=== PATIENT | female | born 1960 | race Caucasian/White ===

== ENCOUNTER 2017-07-21 13:58 | Inpatient (IN) | payer MEDICARE, MEDICAID ==
[~2017-07-21] VITALS: Ht 162.6 cm; Wt 40.9 kg
[~2017-07-21 13:58] MED LIST: ALBU18HF2 INH; ASPI-612 PO; ATOR10TA70 PO; AZI25OT PO; BUSP30TA2 PO; CARV3.122 PO; DESL5TAB PO; FENT1PAT7 TOP; LEVO125T8 PO; MONT10TA24 PO; OMEG1CAP46 PO; ONDA8TAB6 PO; QUET-1 PO; RIVA20TA PO; SERT100T10 PO; ZIPR40CA2 PO; ZIPR80CA2 PO
[2017-07-21] MEDS ORDERED: normal saline 1000ml 1,000 ML IV ONE (14:20)
[2017-07-21] MEDS ORDERED: aspirin 81mg tab.chew PO ONE (14:20)
[2017-07-21 14:50] LABS: BASOPHILS # (AUTO) 0.1 X10'3 (0-0.2); BASOPHILS % (AUTO) 0.7 % (0-1); EOSINOPHILS # (AUTO) 0.2 X10'3 (0-0.9); EOSINOPHILS % (AUTO) 2.6 % (0-6); HEMATOCRIT 35.3 % (35.0-45.0); HEMOGLOBIN 11.7 g/dl (12.0-16.0); LYMPHOCYTES # (AUTO) 3.1 X10'3 (1.1-4.8); LYMPHOCYTES % (AUTO) 40.3 % (21-51); MEAN CORPUSCULAR HEMOGLOBIN 28.6 PG (27.0-31.0); MEAN CORPUSCULAR HGB CONC 33.1 % (33.0-36.5); MEAN CORPUSCULAR VOLUME 86.3 FL (78-98); MEAN PLATELET VOLUME 6.9 FL (7.4-10.4); MONOCYTES # (AUTO) 0.9 X10'3 (0-0.9); MONOCYTES % (AUTO) 11.6 % (2-12); NEUTROPHILS # (AUTO) 3.5 X10'3 (1.8-7.7); NEUTROPHILS % (AUTO) 44.8 % (42-75); PLATELET COUNT 503 X10'3 (140-440); RED BLOOD COUNT 4.09 X10'6 (4.20-5.60); RED CELL DISTRIBUTION WIDTH 15.1 % (11.5-14.5); WHITE BLOOD COUNT 7.8 X10'3 (4.5-11.0)
[2017-07-21 15:17] LABS: ALANINE AMINOTRANSFERASE 32 U/L (12-78); ALBUMIN 3.8 G/DL (3.4-5.0); ALKALINE PHOSPHATASE 85 IU/L (46-116); ANION GAP 6 (8-16); ASPARTATE AMINO TRANSFERASE 37 U/L (10-37); BILIRUBIN,TOTAL 0.4 MG/DL (0.1-1.0); BLOOD UREA NITROGEN 15 MG/DL (7-18); BUN/CREATININE RATIO 16.5 (6.6-38.0); CALCIUM 9.1 MG/DL (8.5-10.1); CHLORIDE 103 MMOL/L (99-107); CREATININE 0.91 MG/DL (0.40-0.90); GLUCOSE 84 MG/DL (70-104); POTASSIUM 4.4 MMOL/L (3.5-5.1); SODIUM 140 MMOL/L (135-145); TOTAL CARBON DIOXIDE 30.6 MMOL/L (24-32); TOTAL PROTEIN 7.6 G/DL (6.4-8.2); eGFR 64 ML/MIN
[2017-07-21 15:25] LABS: MAGNESIUM 2.1 MG/DL (1.5-2.4)
[2017-07-21] MEDS ORDERED: FENTANYL 25 MCG TOP SCH (16:20)
[2017-07-21] MEDS ORDERED: mag hydrox/Alum hydrox/simeth 30ml oral suspension PO PRN (16:25)
[2017-07-21] MEDS ORDERED: regadenoson 0.4mg/5ml syringe IV ONE (16:25)
[2017-07-21] MEDS ORDERED: magnesium 4gm in 100ml NS 100 ML IV PRN (16:25)
[2017-07-21] MEDS ORDERED: ondansetron/PF 4mg/2ml inj IV PRN (16:25)
[2017-07-21] MEDS ORDERED: acetaminophen 325mg tablet PO PRN (16:25)
[2017-07-21] MEDS ORDERED: nitroGLYCERIN 0.4mg SUBLingual tab SL PRN ×2 (16:25→16:30)
[2017-07-21] MEDS ORDERED: aminophylline 250mg/10ml inj. IV PRN (16:25)
[2017-07-21] MEDS ORDERED: magnesium hydroxide 30ml (MOM) UD suspension PO PRN (16:25)
[2017-07-21] MEDS ORDERED: metoprolol tartrate 1mg/ml inj IV PRN (16:25)
[2017-07-21] MEDS ORDERED: potassium Cl 20 mEq SR tablet PO PRN ×2 (16:25)
[2017-07-21] MEDS ORDERED: ipratropium/albuterol 3ml nebule NEB PRN (16:25)
[2017-07-21] MEDS ORDERED: magnesium 2GM in 50ml NS 50 ML IV PRN (16:25)
[2017-07-21] MEDS ORDERED: potassium Cl 40MEQ/NS 500ml 500 ML IV PRN ×2 (16:25)
[2017-07-21] MEDS ORDERED: albuterol 2.5 MG/3 ML nebule NEB PRN (17:35)
[2017-07-21 20:00] VITALS: BP_SYST 102; BP_SYST 96; BP_DIAS 61; BP_DIAS 67
[2017-07-21] MEDS: carVEDilol 3.125mg tablet PO SCH (20:00)
[2017-07-21] MEDS ORDERED: ziprasidone 20mg capsule PO SCH (21:00)
[2017-07-21] MEDS ORDERED: QUEtiapine 25mg tablet PO SCH ×2 (21:00→21:59)
[2017-07-21] MEDS ORDERED: ZIPRASIDONE HCL PO SCH (21:00)
[2017-07-21] MEDS: busPIRone 15mg tablet PO SCH (21:17)
[2017-07-21] MEDS: methylPREDNISolone sod succ 125mg/2ml vial IV SCH (21:38)
[2017-07-21 22:13] VITALS: BP 120/74
[2017-07-22] VITALS (13 sets, daily range): BP systolic 91–131; BP diastolic 52–83
[2017-07-22 03:05] LABS: ALANINE AMINOTRANSFERASE 19 U/L (12-78); ALBUMIN 3.6 G/DL (3.4-5.0); ALKALINE PHOSPHATASE 87 IU/L (46-116); ANION GAP 4 (8-16); ASPARTATE AMINO TRANSFERASE 20 U/L (10-37); BILIRUBIN,TOTAL 0.4 MG/DL (0.1-1.0); BLOOD UREA NITROGEN 16 MG/DL (7-18); BUN/CREATININE RATIO 15.1 (6.6-38.0); CALCIUM 8.7 MG/DL (8.5-10.1); CHLORIDE 105 MMOL/L (99-107); CREATININE 1.06 MG/DL (0.40-0.90); GLUCOSE 142 MG/DL (70-104); POTASSIUM 4.2 MMOL/L (3.5-5.1); SODIUM 141 MMOL/L (135-145); TOTAL CARBON DIOXIDE 31.6 MMOL/L (24-32); TOTAL PROTEIN 7.3 G/DL (6.4-8.2); eGFR 54 ML/MIN
[2017-07-22 03:08] LABS: MAGNESIUM 2.1 MG/DL (1.5-2.4)
[2017-07-22] MEDS: methylPREDNISolone sod succ 125mg/2ml vial IV SCH ×3 (03:26→13:49)
[2017-07-22 04:19] LABS: BASOPHILS % (AUTO) 0.2 % (0-1); EOSINOPHILS # (AUTO) 0.1 X10'3 (0-0.9); EOSINOPHILS % (AUTO) 1.5 % (0-6); HEMATOCRIT 35.6 % (35.0-45.0); HEMOGLOBIN 11.6 g/dl (12.0-16.0); LYMPHOCYTES # (AUTO) 1.3 X10'3 (1.1-4.8); LYMPHOCYTES % (AUTO) 17.7 % (21-51); MEAN CORPUSCULAR HEMOGLOBIN 28.3 PG (27.0-31.0); MEAN CORPUSCULAR HGB CONC 32.7 % (33.0-36.5); MEAN CORPUSCULAR VOLUME 86.4 FL (78-98); MEAN PLATELET VOLUME 7.4 FL (7.4-10.4); MONOCYTES # (AUTO) 0.1 X10'3 (0-0.9); MONOCYTES % (AUTO) 1.1 % (2-12); NEUTROPHILS % (AUTO) 79.5 % (42-75); PLATELET COUNT 458 X10'3 (140-440); RED BLOOD COUNT 4.11 X10'6 (4.20-5.60); WHITE BLOOD COUNT 7.5 X10'3 (4.5-11.0)
[2017-07-22] MEDS ORDERED: atorvastatin 10mg tablet PO SCH (08:00)
[2017-07-22] MEDS ORDERED: K and/or MAG REPLACEMENT MC SCH (08:00)
[2017-07-22] MEDS ORDERED: levoTHYROXINE 125mcg tablet PO SCH (08:00)
[2017-07-22] MEDS ORDERED: aspirin 81mg tablet.DR PO SCH (08:00)
[2017-07-22] MEDS ORDERED: montelukast 10mg tablet PO SCH (08:00)
[2017-07-22] MEDS ORDERED: rivaroxaban 20mg tablet PO SCH (08:00)
[2017-07-22] MEDS ORDERED: sertraline 50mg tablet PO SCH (08:00)
[2017-07-22] MEDS ORDERED: aminophylline inj. 10 ML IV ONE (09:03)
[2017-07-22] MEDS ORDERED: regadenoson 0.4mg/5ml syringe IV ONE (09:04)
[2017-07-22] MEDS: carVEDilol 3.125mg tablet PO SCH (10:55)
[2017-07-22] MEDS: busPIRone 15mg tablet PO SCH (10:56)
[2017-07-22] MEDS ORDERED: ALPRAZolam 0.25mg tablet PO PRN (11:30)
[2017-07-22] MEDS ORDERED: PRED20TA PO (12:13)
[2017-07-22] MEDS ORDERED: FLUT1BLS3 INH (12:13)
[2017-07-23] MEDS ORDERED: levoTHYROXINE 75mcg tablet PO SCH (08:00)
[2017-07-23] MEDS ORDERED: fentaNYL 25MCG/hour patch.TD72 TD SCH (08:00)
[2017-07-24] MEDS ORDERED: fentaNYL 25MCG/hour patch.TD72 TD SCH (08:00)
== END 2017-07-22 16:40 | disposition home or self-care (01) | DRG 191 ==
LOC: ER 13:59 → ED HOLD 16:21 → SUR 3N 18:40
PROVIDERS: ADMIT Family Medicine; ATTEND Family Medicine
PROC: 4A02XM4 Measurement of Cardiac Total Activity, External Approach (ICD-10-PCS; principal; 2017-07-22)
PROC: 3E073KZ Introduction of Other Diagnostic Substance into Coronary Artery, Percutaneous Approach (ICD-10-PCS; 2017-07-22)
DX: J44.1 Chronic obstructive pulmonary disease with (acute) exacerbation (principal); I50.20 Unspecified systolic (congestive) heart failure; I11.0 Hypertensive heart disease with heart failure; J84.10 Pulmonary fibrosis, unspecified; Z99.81 Dependence on supplemental oxygen; E78.00 Pure hypercholesterolemia, unspecified; G89.4 Chronic pain syndrome; F41.9 Anxiety disorder, unspecified; G43.909 Migraine, unspecified, not intractable, without status migrainosus; M54.9 Dorsalgia, unspecified; E78.5 Hyperlipidemia, unspecified; R07.81 Pleurodynia; F31.9 Bipolar disorder, unspecified; K21.9 Gastro-esophageal reflux disease without esophagitis; F12.90 Cannabis use, unspecified, uncomplicated; I25.2 Old myocardial infarction; Z90.710 Acquired absence of both cervix and uterus; Z88.8 Allergy status to other drugs, medicaments and biological substances; Z79.01 Long term (current) use of anticoagulants; Z79.82 Long term (current) use of aspirin; Z79.899 Other long term (current) drug therapy; Z86.718 Personal history of other venous thrombosis and embolism; Z87.442 Personal history of urinary calculi; Z87.891 Personal history of nicotine dependence; Z82.49 Family history of ischemic heart disease and other diseases of the circulatory system
CPT/HCPCS: 36415; 71045; 78452; 80053; 83735; 83880; 84443; 84484; 85025; 87070; 93005; 93017; 94760; 96360; 96361; 99285; A9500; J0280; J2270; J2405; J2785; J2930; J7030

== ENCOUNTER 2017-08-21 20:24 | Inpatient (IN) | payer MEDICARE, MEDICAID ==
[~2017-08-21] VITALS: Ht 162.6 cm; Wt 40.9 kg
[2017-08-21 00:30] VITALS: BP 158/90
[~2017-08-21 20:24] MED LIST changes: -AZI25OT PO; +FLUT1BLS3 INH; +PRED20TA PO
[2017-08-21 20:49] LABS: BASOPHILS % (AUTO) 0.5 % (0-1); EOSINOPHILS # (AUTO) 0.7 X10'3 (0-0.9); EOSINOPHILS % (AUTO) 6.4 % (0-6); HEMATOCRIT 36.2 % (35.0-45.0); HEMOGLOBIN 12.4 g/dl (12.0-16.0); LYMPHOCYTES # (AUTO) 3.6 X10'3 (1.1-4.8); LYMPHOCYTES % (AUTO) 34.6 % (21-51); MEAN CORPUSCULAR HEMOGLOBIN 29.5 PG (27.0-31.0); MEAN CORPUSCULAR HGB CONC 34.1 % (33.0-36.5); MEAN CORPUSCULAR VOLUME 86.4 FL (78-98); MEAN PLATELET VOLUME 6.8 FL (7.4-10.4); MONOCYTES # (AUTO) 0.9 X10'3 (0-0.9); MONOCYTES % (AUTO) 8.4 % (2-12); NEUTROPHILS # (AUTO) 5.3 X10'3 (1.8-7.7); NEUTROPHILS % (AUTO) 50.1 % (42-75); PLATELET COUNT 439 X10'3 (140-440); RED BLOOD COUNT 4.19 X10'6 (4.20-5.60); RED CELL DISTRIBUTION WIDTH 14.2 % (11.5-14.5); WHITE BLOOD COUNT 10.5 X10'3 (4.5-11.0)
[2017-08-21] MEDS ORDERED: aspirin 325mg tablet PO ONE (21:00)
[2017-08-21] MEDS ORDERED: acetaminophen 325mg tablet PO ONE (21:00)
[2017-08-21 21:02] LABS: PARTIAL THROMBOPLASTIN TIME 26 SECONDS (22-32)
[2017-08-21 21:11] LABS: ALANINE AMINOTRANSFERASE 11 U/L (12-78); ALBUMIN 4.3 G/DL (3.4-5.0); ALBUMIN/GLOBULIN RATIO 1.1 (1.1-1.5); ALKALINE PHOSPHATASE 91 IU/L (46-116); ANION GAP 10 (8-16); ASPARTATE AMINO TRANSFERASE 22 U/L (10-37); BILIRUBIN,TOTAL 0.4 MG/DL (0.1-1.0); BLOOD UREA NITROGEN 17 MG/DL (7-18); BUN/CREATININE RATIO 15.6 (6.6-38.0); CALCIUM 9.6 MG/DL (8.5-10.1); CHLORIDE 103 MMOL/L (99-107); CREATININE 1.09 MG/DL (0.40-0.90); GLUCOSE 126 MG/DL (70-104); POTASSIUM 4.2 MMOL/L (3.5-5.1); SODIUM 143 MMOL/L (135-145); TOTAL CARBON DIOXIDE 29.6 MMOL/L (24-32); TOTAL PROTEIN 8.3 G/DL (6.4-8.2); eGFR 52 ML/MIN
[2017-08-21] MEDS ORDERED: normal saline 1000ml 1,000 ML IV ONE (21:20)
[2017-08-21] MEDS ORDERED: iohexol 350MG/ML 100ml bottle IV ONE (21:25)
[2017-08-21] MEDS ORDERED: ondansetron/PF 4mg/2ml inj IV ONE (22:25)
[2017-08-21] MEDS ORDERED: morphine 4 MG/ML inj SYRINge IV ONE (22:25)
[2017-08-21] MEDS ORDERED: levoFLOXACIN 250mg tablet PO ONE (22:30)
[2017-08-21] MEDS ORDERED: magnesium hydroxide 30ml (MOM) UD suspension PO PRN (23:05)
[2017-08-21] MEDS ORDERED: acetaminophen 325mg tablet PO PRN (23:05)
[2017-08-21] MEDS ORDERED: ondansetron/PF 4mg/2ml inj IV PRN (23:05)
[2017-08-21] MEDS ORDERED: mag hydrox/Alum hydrox/simeth 30ml oral suspension PO PRN (23:05)
[2017-08-21] MEDS ORDERED: morphine 2 MG/ML inj. syringe IV PRN (23:05)
[2017-08-21] MEDS ORDERED: ipratropium 0.5 MG/2.5ML nebule IH PRN (23:15)
[2017-08-21] MEDS ORDERED: albuterol 2.5 MG/3 ML nebule NEB PRN (23:15)
[2017-08-22] VITALS (7 sets, daily range): BP systolic 96–169; BP diastolic 57–106
[2017-08-22] MEDS: ziprasidone 20mg capsule PO SCH ×2 (01:39→22:04)
[2017-08-22] MEDS: quetiapine 100mg tablet PO SCH ×2 (01:42→22:04)
[2017-08-22 03:10] LABS: BASOPHILS % (AUTO) 0.5 % (0-1); EOSINOPHILS # (AUTO) 0.5 X10'3 (0-0.9); EOSINOPHILS % (AUTO) 5.8 % (0-6); HEMATOCRIT 34.7 % (35.0-45.0); HEMOGLOBIN 11.9 g/dl (12.0-16.0); LYMPHOCYTES # (AUTO) 3.5 X10'3 (1.1-4.8); LYMPHOCYTES % (AUTO) 37.9 % (21-51); MEAN CORPUSCULAR HEMOGLOBIN 29.8 PG (27.0-31.0); MEAN CORPUSCULAR HGB CONC 34.4 % (33.0-36.5); MEAN CORPUSCULAR VOLUME 86.5 FL (78-98); MONOCYTES # (AUTO) 0.9 X10'3 (0-0.9); NEUTROPHILS # (AUTO) 4.2 X10'3 (1.8-7.7); NEUTROPHILS % (AUTO) 45.8 % (42-75); PLATELET COUNT 386 X10'3 (140-440); RED CELL DISTRIBUTION WIDTH 13.8 % (11.5-14.5); WHITE BLOOD COUNT 9.2 X10'3 (4.5-11.0)
[2017-08-22 03:27] LABS: ALBUMIN 4.2 G/DL (3.4-5.0); ANION GAP 9 (8-16); BLOOD UREA NITROGEN 12 MG/DL (7-18); BUN/CREATININE RATIO 14.3 (6.6-38.0); CALCIUM 9.2 MG/DL (8.5-10.1); CHLORIDE 102 MMOL/L (99-107); CREATININE 0.84 MG/DL (0.40-0.90); GLUCOSE 94 MG/DL (70-104); SODIUM 142 MMOL/L (135-145); TOTAL CARBON DIOXIDE 31.4 MMOL/L (24-32); eGFR 70 ML/MIN
[2017-08-22] MEDS ORDERED: morphine 5 MG/ML injection IV PRN (03:40)
[2017-08-22] MEDS: morphine 4 MG/ML inj SYRINge IV PRN ×4 (04:20→19:19)
[2017-08-22] MEDS ORDERED: enoxaparin 40mg/0.4ml syringe SUBCUT SCH (08:00)
[2017-08-22] MEDS: montelukast 10mg tablet PO SCH (08:24)
[2017-08-22] MEDS: levoTHYROXINE 125mcg tablet PO SCH (08:24)
[2017-08-22] MEDS: busPIRone 15mg tablet PO SCH ×2 (08:24→22:05)
[2017-08-22] MEDS: sertraline 50mg tablet PO SCH (08:24)
[2017-08-22] MEDS: atorvastatin 10mg tablet PO SCH (08:25)
[2017-08-22] MEDS: carVEDilol 3.125mg tablet PO SCH ×2 (08:25→22:05)
[2017-08-22] MEDS: aspirin 81mg tablet.DR PO SCH (08:25)
[2017-08-22] MEDS: lactobacillus rhamnosus 10,000 MMU CELLS/CAPSULE PO SCH ×2 (08:25→17:28)
[2017-08-22] MEDS: cetirizine 10mg tablet PO SCH (08:25)
[2017-08-22] MEDS: rivaroxaban 20mg tablet PO SCH (08:25)
[2017-08-22] MEDS: OMEGA-3/DHA/EPA/FISH OIL 1 EACH CAPSULE.DR PO SCH (08:32)
[2017-08-22] MEDS: fluticasone/vilanterol 200mcg/25mcg inhaler IH SCH (09:32)
[2017-08-22] MEDS: levoFLOXACIN 750MG TABLET PO SCH (11:01)
[2017-08-22] MEDS ORDERED: ketorolac tromethamine 15mg/ml inj. IV PRN (14:20)
[2017-08-22] MEDS ORDERED: ALPRAZolam 0.25mg tablet PO PRN ×2 (14:20→15:50)
[2017-08-22] MEDS: HYDROcodone/acetaminophen 10/325mg tab PO PRN ×2 (15:57→22:05)
[2017-08-23 05:47] LABS: BASOPHILS # (AUTO) 0.1 X10'3 (0-0.2); EOSINOPHILS # (AUTO) 0.6 X10'3 (0-0.9); EOSINOPHILS % (AUTO) 7.4 % (0-6); HEMATOCRIT 33.7 % (35.0-45.0); HEMOGLOBIN 11.3 g/dl (12.0-16.0); LYMPHOCYTES # (AUTO) 3.5 X10'3 (1.1-4.8); LYMPHOCYTES % (AUTO) 42.9 % (21-51); MEAN CORPUSCULAR HEMOGLOBIN 29.4 PG (27.0-31.0); MEAN CORPUSCULAR HGB CONC 33.7 % (33.0-36.5); MEAN CORPUSCULAR VOLUME 87.3 FL (78-98); MEAN PLATELET VOLUME 7.1 FL (7.4-10.4); MONOCYTES # (AUTO) 1.1 X10'3 (0-0.9); MONOCYTES % (AUTO) 13.2 % (2-12); NEUTROPHILS # (AUTO) 2.9 X10'3 (1.8-7.7); NEUTROPHILS % (AUTO) 35.5 % (42-75); PLATELET COUNT 340 X10'3 (140-440); RED BLOOD COUNT 3.85 X10'6 (4.20-5.60); RED CELL DISTRIBUTION WIDTH 14.2 % (11.5-14.5); WHITE BLOOD COUNT 8.2 X10'3 (4.5-11.0)
[2017-08-23 06:26] LABS: ALBUMIN 3.6 G/DL (3.4-5.0); ANION GAP 9 (8-16); BLOOD UREA NITROGEN 13 MG/DL (7-18); BUN/CREATININE RATIO 14.3 (6.6-38.0); CALCIUM 8.8 MG/DL (8.5-10.1); CHLORIDE 103 MMOL/L (99-107); CREATININE 0.91 MG/DL (0.40-0.90); GLUCOSE 90 MG/DL (70-104); POTASSIUM 3.7 MMOL/L (3.5-5.1); SODIUM 142 MMOL/L (135-145); TOTAL CARBON DIOXIDE 30.2 MMOL/L (24-32); eGFR 64 ML/MIN
[2017-08-23] MEDS: levoTHYROXINE 125mcg tablet PO SCH (07:59)
[2017-08-23] MEDS: busPIRone 15mg tablet PO SCH (07:59)
[2017-08-23] MEDS: atorvastatin 10mg tablet PO SCH (07:59)
[2017-08-23] MEDS: cetirizine 10mg tablet PO SCH (07:59)
[2017-08-23] MEDS: lactobacillus rhamnosus 10,000 MMU CELLS/CAPSULE PO SCH (07:59)
[2017-08-23] MEDS: OMEGA-3/DHA/EPA/FISH OIL 1 EACH CAPSULE.DR PO SCH (08:00)
[2017-08-23] MEDS: carVEDilol 3.125mg tablet PO SCH (08:00)
[2017-08-23] MEDS: rivaroxaban 20mg tablet PO SCH (08:00)
[2017-08-23] MEDS: montelukast 10mg tablet PO SCH (08:00)
[2017-08-23] MEDS: sertraline 50mg tablet PO SCH (08:00)
[2017-08-23] MEDS: aspirin 81mg tablet.DR PO SCH (08:00)
[2017-08-23] MEDS: fluticasone/vilanterol 200mcg/25mcg inhaler IH SCH (08:01)
[2017-08-23] MEDS ORDERED: AMOX-422 PO (08:07)
[2017-08-23] MEDS: morphine 4 MG/ML inj SYRINge IV PRN (09:01)
[2017-08-23] MEDS ORDERED: ALPRAZolam 0.5mg tablet PO PRN (09:04)
[2017-08-23] MEDS: levoFLOXACIN 750MG TABLET PO SCH (10:52)
[2017-08-23] MEDS: HYDROcodone/acetaminophen 10/325mg tab PO PRN (10:52)
[2017-08-23 11:00] VITALS: BP 111/68
[2017-08-24] MEDS ORDERED: fentaNYL 25MCG/hour patch.TD72 TD SCH (08:00)
== END 2017-08-23 16:57 | disposition home or self-care (01) | DRG 682 ==
LOC: ER 20:25 → ED HOLD 23:05 → PCU 3S 08-22 00:52 → OBSVTOIN 08-22 13:45 → MED 3N 08-22 16:23
PROVIDERS: ADMIT Family Medicine; ATTEND Family Medicine
PROC: B32T1ZZ Computerized Tomography (CT Scan) of Left Pulmonary Artery using Low Osmolar Contrast (ICD-10-PCS; principal; 2017-08-21)
PROC: B3201ZZ Computerized Tomography (CT Scan) of Thoracic Aorta using Low Osmolar Contrast (ICD-10-PCS; 2017-08-21)
PROC: B32S1ZZ Computerized Tomography (CT Scan) of Right Pulmonary Artery using Low Osmolar Contrast (ICD-10-PCS; 2017-08-21)
DX: N17.9 Acute kidney failure, unspecified (principal); J18.9 Pneumonia, unspecified organism; J96.21 Acute and chronic respiratory failure with hypoxia; I11.0 Hypertensive heart disease with heart failure; I50.9 Heart failure, unspecified; Z68.1 Body mass index [BMI] 19.9 or less, adult; J44.0 Chronic obstructive pulmonary disease with (acute) lower respiratory infection; F12.90 Cannabis use, unspecified, uncomplicated; F41.9 Anxiety disorder, unspecified; G43.909 Migraine, unspecified, not intractable, without status migrainosus; M54.9 Dorsalgia, unspecified; I25.10 Atherosclerotic heart disease of native coronary artery without angina pectoris; E03.9 Hypothyroidism, unspecified; F31.9 Bipolar disorder, unspecified; E78.00 Pure hypercholesterolemia, unspecified; E78.5 Hyperlipidemia, unspecified; G89.29 Other chronic pain; K21.9 Gastro-esophageal reflux disease without esophagitis; I25.2 Old myocardial infarction; Z90.710 Acquired absence of both cervix and uterus; Z88.8 Allergy status to other drugs, medicaments and biological substances; Z79.01 Long term (current) use of anticoagulants; Z79.82 Long term (current) use of aspirin; Z79.899 Other long term (current) drug therapy; Z87.442 Personal history of urinary calculi; Z86.718 Personal history of other venous thrombosis and embolism; Z87.440 Personal history of urinary (tract) infections; Z87.891 Personal history of nicotine dependence; Z86.711 Personal history of pulmonary embolism; Z82.5 Family history of asthma and other chronic lower respiratory diseases; Z82.49 Family history of ischemic heart disease and other diseases of the circulatory system; Z82.41 Family history of sudden cardiac death
CPT/HCPCS: 36415; 71045; 71275; 80048; 80053; 83605; 83880; 84443; 84484; 85025; 85610; 85730; 87040; 87070; 93005; 94640; 94760; 96360; 99285; G0378; J2270; J2405; J7030; Q9967

== ENCOUNTER 2017-09-18 00:28 | Inpatient (IN) | payer MEDICARE, MEDICAID ==
[~2017-09-18] VITALS: Ht 162.6 cm; Wt 39.0 kg
[~2017-09-18 00:28] MED LIST changes: -PRED20TA PO
[2017-09-18 02:03] LABS: BASOPHILS % (AUTO) 0.4 % (0-1); EOSINOPHILS # (AUTO) 0.3 X10'3 (0-0.9); HEMATOCRIT 33.4 % (35.0-45.0); HEMOGLOBIN 11.3 g/dl (12.0-16.0); LYMPHOCYTES # (AUTO) 3.1 X10'3 (1.1-4.8); MEAN CORPUSCULAR HEMOGLOBIN 29.2 PG (27.0-31.0); MEAN CORPUSCULAR HGB CONC 33.7 % (33.0-36.5); MEAN CORPUSCULAR VOLUME 86.7 FL (78-98); MEAN PLATELET VOLUME 7.2 FL (7.4-10.4); MONOCYTES # (AUTO) 0.8 X10'3 (0-0.9); MONOCYTES % (AUTO) 7.3 % (2-12); NEUTROPHILS # (AUTO) 6.1 X10'3 (1.8-7.7); NEUTROPHILS % (AUTO) 59.3 % (42-75); PLATELET COUNT 275 X10'3 (140-440); RED BLOOD COUNT 3.85 X10'6 (4.20-5.60); RED CELL DISTRIBUTION WIDTH 13.3 % (11.5-14.5); WHITE BLOOD COUNT 10.4 X10'3 (4.5-11.0)
[2017-09-18 02:20] LABS: ALANINE AMINOTRANSFERASE 18 U/L (12-78); ALBUMIN 4.1 G/DL (3.4-5.0); ALBUMIN/GLOBULIN RATIO 1.3 (1.1-1.5); ALKALINE PHOSPHATASE 74 IU/L (46-116); ANION GAP 8 (8-16); ASPARTATE AMINO TRANSFERASE 21 U/L (10-37); BILIRUBIN,TOTAL 0.5 MG/DL (0.1-1.0); BLOOD UREA NITROGEN 14 MG/DL (7-18); BUN/CREATININE RATIO 17.7 (6.6-38.0); CALCIUM 8.6 MG/DL (8.5-10.1); CHLORIDE 100 MMOL/L (99-107); CREATININE 0.79 MG/DL (0.40-0.90); GLUCOSE 106 MG/DL (70-104); POTASSIUM 3.5 MMOL/L (3.5-5.1); SODIUM 136 MMOL/L (135-145); TOTAL CARBON DIOXIDE 28.1 MMOL/L (24-32); TOTAL PROTEIN 7.3 G/DL (6.4-8.2); eGFR 76 ML/MIN
[2017-09-18] MEDS ORDERED: aspirin 81mg tab.chew PO ONE (02:25)
[2017-09-18] MEDS ORDERED: dexamethasone 4mg tablet PO ONE (02:25)
[2017-09-18] MEDS ORDERED: nitroGLYCERIN 0.4mg SUBLingual tab SL PRN (02:25)
[2017-09-18] MEDS ORDERED: FENT-90 TOP (03:04)
[2017-09-18] MEDS ORDERED: mag hydrox/Alum hydrox/simeth 30ml oral suspension PO PRN (04:30)
[2017-09-18] MEDS ORDERED: magnesium hydroxide 30ml (MOM) UD suspension PO PRN (04:30)
[2017-09-18] MEDS ORDERED: ondansetron/PF 4mg/2ml inj IV PRN (04:30)
[2017-09-18] MEDS ORDERED: acetaminophen 325mg tablet PO PRN (04:30)
[2017-09-18] MEDS ORDERED: non-formulary drug (Albuterol Sulfate (Ventolin Hfa) 2 PUFFS) INH SCH (04:40)
[2017-09-18] MEDS ORDERED: FENTANYL 12 MCG TOP SCH (04:40)
[2017-09-18] MEDS: ziprasidone 20mg capsule PO ONE ×2 (05:28→07:46)
[2017-09-18] MEDS ORDERED: albuterol 2.5 MG/3 ML nebule NEB PRN (05:40)
[2017-09-18] MEDS: morphine 4 MG/ML inj SYRINge IV PRN ×4 (07:30→19:33)
[2017-09-18] MEDS ORDERED: ALBU8.5H8 (07:36)
[2017-09-18] MEDS ORDERED: ESTR1TAB28 (07:36)
[2017-09-18] MEDS ORDERED: HYDR-565 PO (07:40)
[2017-09-18] MEDS: aspirin 81mg tablet.DR PO SCH (07:44)
[2017-09-18] MEDS: OMEGA-3/DHA/EPA/FISH OIL 1 EACH CAPSULE.DR PO SCH (07:44)
[2017-09-18] MEDS: cetirizine 10mg tablet PO SCH (07:44)
[2017-09-18] MEDS: LIDOcaine 5% patch TP SCH (07:44)
[2017-09-18] MEDS: busPIRone 15mg tablet PO SCH ×2 (07:45→19:33)
[2017-09-18] MEDS: diltiazem 30mg tablet PO SCH ×3 (07:45→19:33)
[2017-09-18] MEDS: sertraline 50mg tablet PO SCH (07:45)
[2017-09-18] MEDS: montelukast 10mg tablet PO SCH (07:46)
[2017-09-18] MEDS: atorvastatin 10mg tablet PO SCH (07:46)
[2017-09-18] MEDS: levoTHYROXINE 125mcg tablet PO SCH (07:46)
[2017-09-18] MEDS: rivaroxaban 20mg tablet PO SCH (07:46)
[2017-09-18] MEDS ORDERED: DESLORATADINE PO SCH (08:00)
[2017-09-18] MEDS ORDERED: fentaNYL 12 MCG/hour patch.TD72 TD SCH (09:00)
[2017-09-18 11:00] VITALS: BP 96/67
[2017-09-18] MEDS: ALPRAZolam 0.25mg tablet PO PRN ×2 (13:23→19:33)
[2017-09-18 15:00] VITALS: BP 119/80
[2017-09-18] MEDS ORDERED: guaiFENesin 200 MG/10 ML oral syrup UD cup PO PRN (18:30)
[2017-09-18 19:00] VITALS: BP 127/78
[2017-09-18] MEDS: ipratropium/albuterol 3ml nebule NEB SCH ×2 (19:00→23:00)
[2017-09-18] MEDS: methylPREDNISolone sod succ 125mg/2ml vial IV SCH (19:33)
[2017-09-18] MEDS: cefTRIAXone 1g/NS 100ml IVPB 100 ML IV SCH (19:58)
[2017-09-18] MEDS: quetiapine 100mg tablet PO SCH (21:49)
[2017-09-18] MEDS: ziprasidone 20mg capsule PO SCH (21:49)
[2017-09-18 23:00] VITALS: BP 113/71
[2017-09-19] MEDS: methylPREDNISolone sod succ 125mg/2ml vial IV SCH ×2 (00:26→07:43)
[2017-09-19] MEDS: diltiazem 30mg tablet PO SCH ×3 (02:27→13:19)
[2017-09-19] MEDS: morphine 4 MG/ML inj SYRINge IV PRN ×4 (02:34→23:25)
[2017-09-19 03:00] VITALS: BP 93/53
[2017-09-19] MEDS: ipratropium/albuterol 3ml nebule NEB SCH ×5 (03:00→23:17)
[2017-09-19 06:22] LABS: BASOPHILS # (AUTO) 0.3 X10'3 (0-0.2); BASOPHILS % (AUTO) 2.2 % (0-1); EOSINOPHILS # (AUTO) 0.1 X10'3 (0-0.9); EOSINOPHILS % (AUTO) 0.6 % (0-6); HEMATOCRIT 33.9 % (35.0-45.0); HEMOGLOBIN 11.7 g/dl (12.0-16.0); LYMPHOCYTES # (AUTO) 2.1 X10'3 (1.1-4.8); LYMPHOCYTES % (AUTO) 15.3 % (21-51); MEAN CORPUSCULAR HEMOGLOBIN 29.3 PG (27.0-31.0); MEAN CORPUSCULAR HGB CONC 34.5 % (33.0-36.5); MEAN PLATELET VOLUME 7.4 FL (7.4-10.4); MONOCYTES # (AUTO) 0.1 X10'3 (0-0.9); MONOCYTES % (AUTO) 0.8 % (2-12); NEUTROPHILS # (AUTO) 11.2 X10'3 (1.8-7.7); NEUTROPHILS % (AUTO) 81.1 % (42-75); PLATELET COUNT 327 X10'3 (140-440); RED BLOOD COUNT 3.98 X10'6 (4.20-5.60); RED CELL DISTRIBUTION WIDTH 13.4 % (11.5-14.5); WHITE BLOOD COUNT 13.8 X10'3 (4.5-11.0)
[2017-09-19 06:35] VITALS: BP 92/49
[2017-09-19 06:35] LABS: ALANINE AMINOTRANSFERASE 14 U/L (12-78); ALBUMIN 3.9 G/DL (3.4-5.0); ALBUMIN/GLOBULIN RATIO 1.1 (1.1-1.5); ALKALINE PHOSPHATASE 71 IU/L (46-116); ANION GAP 9 (8-16); ASPARTATE AMINO TRANSFERASE 16 U/L (10-37); BILIRUBIN,TOTAL 0.5 MG/DL (0.1-1.0); BLOOD UREA NITROGEN 15 MG/DL (7-18); BUN/CREATININE RATIO 18.8 (6.6-38.0); CALCIUM 9.7 MG/DL (8.5-10.1); CHLORIDE 103 MMOL/L (99-107); GLUCOSE 154 MG/DL (70-104); POTASSIUM 4.2 MMOL/L (3.5-5.1); SODIUM 139 MMOL/L (135-145); TOTAL CARBON DIOXIDE 27.5 MMOL/L (24-32); TOTAL PROTEIN 7.5 G/DL (6.4-8.2); eGFR 74 ML/MIN
[2017-09-19] MEDS: pantoprazole 40mg Tablet.DR PO SCH (07:41)
[2017-09-19] MEDS: cetirizine 10mg tablet PO SCH (07:41)
[2017-09-19] MEDS: aspirin 81mg tablet.DR PO SCH (07:41)
[2017-09-19] MEDS: montelukast 10mg tablet PO SCH (07:41)
[2017-09-19] MEDS: sertraline 50mg tablet PO SCH (07:42)
[2017-09-19] MEDS: atorvastatin 10mg tablet PO SCH (07:42)
[2017-09-19] MEDS: rivaroxaban 20mg tablet PO SCH (07:42)
[2017-09-19] MEDS: levoTHYROXINE 125mcg tablet PO SCH (07:42)
[2017-09-19] MEDS: busPIRone 15mg tablet PO SCH ×2 (07:42→20:47)
[2017-09-19] MEDS: cefTRIAXone 1g/NS 100ml IVPB 100 ML IV SCH (07:43)
[2017-09-19] MEDS: LIDOcaine 5% patch TP SCH (07:55)
[2017-09-19] MEDS: OMEGA-3/DHA/EPA/FISH OIL 1 EACH CAPSULE.DR PO SCH (08:00)
[2017-09-19] MEDS ORDERED: pneumococcal 23-VAL P-sac vacc 25 mcg/0.5ml vial IMVAC ONE (10:00)
[2017-09-19 11:00] VITALS: BP 92/49
[2017-09-19] MEDS: ALPRAZolam 0.25mg tablet PO PRN ×2 (13:04→19:55)
[2017-09-19] MEDS ORDERED: morphine 2 MG/ML inj. syringe IV PRN (13:15)
[2017-09-19] MEDS ORDERED: morphine 4 MG/ML inj SYRINge IV PRN (13:28)
[2017-09-19 15:00] VITALS: BP 113/67
[2017-09-19] MEDS ORDERED: morphine 4 MG/ML inj SYRINge IV ONE (15:10)
[2017-09-19 18:00] VITALS: BP 128/76
[2017-09-19] MEDS: methylPREDNISolone sod succ/PF 40mg inj. IV SCH (18:08)
[2017-09-19] MEDS: lactobacillus rhamnosus 10,000 MMU CELLS/CAPSULE PO SCH (20:00)
[2017-09-19] MEDS ORDERED: docusate sod 250mg capsule PO SCH (21:00)
[2017-09-19 22:00] VITALS: BP 117/77
[2017-09-19] MEDS: quetiapine 100mg tablet PO SCH (22:09)
[2017-09-19] MEDS: ziprasidone 20mg capsule PO SCH (22:09)
[2017-09-20] MEDS ORDERED: diltiazem 30mg tablet PO SCH
[2017-09-20] MEDS: methylPREDNISolone sod succ/PF 40mg inj. IV SCH ×2 (00:48→08:01)
[2017-09-20 02:00] VITALS: BP 104/55
[2017-09-20] MEDS: ipratropium/albuterol 3ml nebule NEB SCH ×4 (03:00→14:43)
[2017-09-20 05:39] LABS: BASOPHILS % (AUTO) 0.3 % (0-1); EOSINOPHILS # (AUTO) 0.2 X10'3 (0-0.9); EOSINOPHILS % (AUTO) 1.2 % (0-6); HEMATOCRIT 32.3 % (35.0-45.0); HEMOGLOBIN 10.7 g/dl (12.0-16.0); LYMPHOCYTES # (AUTO) 1.5 X10'3 (1.1-4.8); LYMPHOCYTES % (AUTO) 8.3 % (21-51); MEAN CORPUSCULAR HEMOGLOBIN 29.1 PG (27.0-31.0); MEAN CORPUSCULAR HGB CONC 33.2 % (33.0-36.5); MEAN CORPUSCULAR VOLUME 87.5 FL (78-98); MEAN PLATELET VOLUME 7.8 FL (7.4-10.4); MONOCYTES # (AUTO) 0.3 X10'3 (0-0.9); MONOCYTES % (AUTO) 1.9 % (2-12); NEUTROPHILS # (AUTO) 15.5 X10'3 (1.8-7.7); NEUTROPHILS % (AUTO) 88.3 % (42-75); PLATELET COUNT 310 X10'3 (140-440); RED BLOOD COUNT 3.69 X10'6 (4.20-5.60); RED CELL DISTRIBUTION WIDTH 13.7 % (11.5-14.5); WHITE BLOOD COUNT 17.5 X10'3 (4.5-11.0)
[2017-09-20 06:08] LABS: ALANINE AMINOTRANSFERASE 17 U/L (12-78); ALBUMIN 3.6 G/DL (3.4-5.0); ALBUMIN/GLOBULIN RATIO 1.1 (1.1-1.5); ALKALINE PHOSPHATASE 63 IU/L (46-116); ANION GAP 10 (8-16); ASPARTATE AMINO TRANSFERASE 11 U/L (10-37); BILIRUBIN,TOTAL 0.3 MG/DL (0.1-1.0); BLOOD UREA NITROGEN 19 MG/DL (7-18); BUN/CREATININE RATIO 21.1 (6.6-38.0); CALCIUM 9.2 MG/DL (8.5-10.1); CHLORIDE 104 MMOL/L (99-107); GLUCOSE 152 MG/DL (70-104); POTASSIUM 4.2 MMOL/L (3.5-5.1); SODIUM 141 MMOL/L (135-145); TOTAL CARBON DIOXIDE 27.2 MMOL/L (24-32); TOTAL PROTEIN 6.9 G/DL (6.4-8.2); eGFR 65 ML/MIN
[2017-09-20 06:30] VITALS: BP 105/54
[2017-09-20] MEDS: OMEGA-3/DHA/EPA/FISH OIL 1 EACH CAPSULE.DR PO SCH (08:00)
[2017-09-20] MEDS: morphine 4 MG/ML inj SYRINge IV PRN ×3 (08:02→16:14)
[2017-09-20] MEDS: sertraline 50mg tablet PO SCH (08:03)
[2017-09-20] MEDS: ALPRAZolam 0.25mg tablet PO PRN (08:03)
[2017-09-20] MEDS: cefTRIAXone 1g/NS 100ml IVPB 100 ML IV SCH (08:03)
[2017-09-20] MEDS: levoTHYROXINE 125mcg tablet PO SCH (08:04)
[2017-09-20] MEDS: lactobacillus rhamnosus 10,000 MMU CELLS/CAPSULE PO SCH (08:05)
[2017-09-20] MEDS: atorvastatin 10mg tablet PO SCH (08:05)
[2017-09-20] MEDS: busPIRone 15mg tablet PO SCH (08:05)
[2017-09-20] MEDS: rivaroxaban 20mg tablet PO SCH (08:05)
[2017-09-20] MEDS: montelukast 10mg tablet PO SCH (08:06)
[2017-09-20] MEDS: aspirin 81mg tablet.DR PO SCH (08:06)
[2017-09-20] MEDS: pantoprazole 40mg Tablet.DR PO SCH (08:06)
[2017-09-20] MEDS: cetirizine 10mg tablet PO SCH (08:06)
[2017-09-20] MEDS: LIDOcaine 5% patch TP SCH (08:21)
[2017-09-20 10:51] LABS: ABG BASE EXCESS -1.6 mmol/L (-2.0-3.0); ABG HCO3 22.5 mmol/L (22.0-26.0); ABG OXYGEN SATURATION 97.8 % (95-98); ABG PCO2 (T) 35.1 mmHg (32.0-45.0); ABG PH (T) 7.422 (7.350-7.450); ABG PO2 (T) 115.4 mmHg (83-108); ALLEN'S TEST Positive; FCOHb 0.3 % (0.5-1.5); FLOW 2 L/min; FMetHb 0.1 % (0.3-1.12); FO2Hb 97.4 % (94-100); PATIENT TEMPERATURE 36.7; RESPIRATORY RATE (OBSERVED) 20 b/min; TOTAL HEMOGLOBIN 11.6 G/dl (12.0-16.0)
[2017-09-20] MEDS ORDERED: PRED10TA23 PO (11:35)
[2017-09-20] MEDS ORDERED: IPRA3AMP9 NEB (11:35)
[2017-09-20] MEDS ORDERED: AZIT500T PO (11:35)
[2017-09-20 12:00] VITALS: BP 135/76
[2017-09-20] MEDS ORDERED: CARV3.12 PO (18:24)
[2017-09-20] MEDS ORDERED: methylPREDNISolone sod succ/PF 40mg inj. IV SCH (20:00)
== END 2017-09-20 17:35 | disposition home or self-care (01) | DRG 189 ==
LOC: ER 00:28 → ED HOLD 04:30 → EDBEDREQ 07:22 → PCU 3S 08:35 → ORTHO 4S 09-20 12:01
PROVIDERS: ADMIT Internal Medicine; ATTEND Internal Medicine
PROC: 3E0234Z Introduction of Serum, Toxoid and Vaccine into Muscle, Percutaneous Approach (ICD-10-PCS; principal; 2017-09-19)
DX: J96.20 Acute and chronic respiratory failure, unspecified whether with hypoxia or hypercapnia (principal); I11.0 Hypertensive heart disease with heart failure; J84.10 Pulmonary fibrosis, unspecified; I50.9 Heart failure, unspecified; J44.0 Chronic obstructive pulmonary disease with (acute) lower respiratory infection; G43.909 Migraine, unspecified, not intractable, without status migrainosus; I48.91 Unspecified atrial fibrillation; E78.00 Pure hypercholesterolemia, unspecified; J44.1 Chronic obstructive pulmonary disease with (acute) exacerbation; F31.9 Bipolar disorder, unspecified; I25.2 Old myocardial infarction; I25.119 Atherosclerotic heart disease of native coronary artery with unspecified angina pectoris; J20.9 Acute bronchitis, unspecified; K21.9 Gastro-esophageal reflux disease without esophagitis; F41.9 Anxiety disorder, unspecified; G89.29 Other chronic pain; F12.90 Cannabis use, unspecified, uncomplicated; Z90.710 Acquired absence of both cervix and uterus; Z88.8 Allergy status to other drugs, medicaments and biological substances; Z79.82 Long term (current) use of aspirin; Z79.899 Other long term (current) drug therapy; Z86.718 Personal history of other venous thrombosis and embolism; Z87.440 Personal history of urinary (tract) infections; Z87.01 Personal history of pneumonia (recurrent); Z87.442 Personal history of urinary calculi; Z82.49 Family history of ischemic heart disease and other diseases of the circulatory system; Z23 Encounter for immunization
CPT/HCPCS: 36415; 36600; 71046; 71250; 80053; 82803; 83605; 83880; 84484; 85018; 85025; 87040; 87070; 90732; 93005; 94640; 94760; 97116; 97161; 97530; 99285; A6257; J0696; J2270; J2405; J2920; J2930; J7030; J8540

== ENCOUNTER 2017-12-08 19:52 | Emergency (ER) | payer MEDICARE, MEDICAID ==
[~2017-12-08] VITALS: Ht 162.6 cm; Wt 41.5 kg
[~2017-12-08 19:52] MED LIST changes: -ALBU18HF2 INH; +ALBU8.5H8; +CARV3.12 PO; -CARV3.122 PO; +ESTR1TAB28; +FENT-90 TOP; -FENT1PAT7 TOP; -FLUT1BLS3 INH; +HYDR-565 PO; +IPRA3AMP9 NEB; -ONDA8TAB6 PO; -ZIPR40CA2 PO
[2017-12-08 20:18] LABS: BASOPHILS % (AUTO) 0.4 % (0-1); EOSINOPHILS # (AUTO) 0.5 X10'3 (0-0.9); EOSINOPHILS % (AUTO) 5.4 % (0-6); HEMATOCRIT 36.1 % (35.0-45.0); HEMOGLOBIN 12.1 g/dl (12.0-16.0); LYMPHOCYTES # (AUTO) 3.6 X10'3 (1.1-4.8); LYMPHOCYTES % (AUTO) 35.3 % (21-51); MEAN CORPUSCULAR HEMOGLOBIN 29.7 PG (27.0-31.0); MEAN CORPUSCULAR HGB CONC 33.4 % (33.0-36.5); MEAN CORPUSCULAR VOLUME 88.7 FL (78-98); MEAN PLATELET VOLUME 6.9 FL (7.4-10.4); MONOCYTES # (AUTO) 1.3 X10'3 (0-0.9); MONOCYTES % (AUTO) 13.2 % (2-12); NEUTROPHILS # (AUTO) 4.6 X10'3 (1.8-7.7); NEUTROPHILS % (AUTO) 45.7 % (42-75); PLATELET COUNT 417 X10'3 (140-440); RED BLOOD COUNT 4.07 X10'6 (4.20-5.60); RED CELL DISTRIBUTION WIDTH 12.7 % (11.5-14.5); WHITE BLOOD COUNT 10.2 X10'3 (4.5-11.0)
[2017-12-08 20:31] LABS: INR 1.4 INR; PARTIAL THROMBOPLASTIN TIME 39 SECONDS (22-32); PROTHROMBIN TIME 13.9 SECONDS (9.0-12.0)
[2017-12-08 20:52] LABS: ALANINE AMINOTRANSFERASE 12 U/L (12-78); ALBUMIN 3.8 G/DL (3.4-5.0); ALBUMIN/GLOBULIN RATIO 0.9 (1.1-1.5); ALKALINE PHOSPHATASE 110 IU/L (46-116); ANION GAP 7 (8-16); ASPARTATE AMINO TRANSFERASE 19 U/L (10-37); BILIRUBIN,TOTAL 0.5 MG/DL (0.1-1.0); BLOOD UREA NITROGEN 21 MG/DL (7-18); BUN/CREATININE RATIO 23.6 (6.6-38.0); CALCIUM 9.5 MG/DL (8.5-10.1); CHLORIDE 104 MMOL/L (99-107); CREATININE 0.89 MG/DL (0.40-0.90); GLUCOSE 114 MG/DL (70-104); POTASSIUM 3.8 MMOL/L (3.5-5.1); SODIUM 141 MMOL/L (135-145); TOTAL CARBON DIOXIDE 30.1 MMOL/L (24-32); TOTAL PROTEIN 8.2 G/DL (6.4-8.2); eGFR 66 ML/MIN
[2017-12-08] MEDS ORDERED: ipratropium/albuterol 3ml nebule NEB ONE (21:25)
[2017-12-08] MEDS ORDERED: HYDROcodone/acetaminophen 5mg/325mg tablet PO ONE (21:25)
[2017-12-08] MEDS ORDERED: methylPREDNISolone sod succ 125mg/2ml vial IV ONE (21:25)
[2017-12-08] MEDS ORDERED: predniSONE 5mg tablet PO ONE (21:35)
[2017-12-08 23:19] VITALS: BP 140/91
[2017-12-09] MEDS ORDERED: PRED10TA23 PO (00:01)
[2017-12-09] MEDS ORDERED: AZIT250T PO (00:01)
== END 2017-12-09 00:10 | disposition home or self-care (01) ==
LOC: ER 19:53
DX: R07.9 Chest pain, unspecified (principal); G43.909 Migraine, unspecified, not intractable, without status migrainosus; I11.0 Hypertensive heart disease with heart failure; E78.00 Pure hypercholesterolemia, unspecified; I25.2 Old myocardial infarction; I50.9 Heart failure, unspecified; J44.9 Chronic obstructive pulmonary disease, unspecified; K21.9 Gastro-esophageal reflux disease without esophagitis; G89.29 Other chronic pain; Z90.710 Acquired absence of both cervix and uterus; Z88.8 Allergy status to other drugs, medicaments and biological substances; Z79.82 Long term (current) use of aspirin; Z79.899 Other long term (current) drug therapy; Z99.81 Dependence on supplemental oxygen
CPT/HCPCS: 36415; 71045; 80053; 84484; 85025; 85610; 85730; 93005; 94640; 94760; 99285; J7512; J2930

== ENCOUNTER 2017-12-18 17:27 | Emergency (ER) | payer MEDICARE, MEDICAID ==
[~2017-12-18] VITALS: Ht 162.6 cm; Wt 43.6 kg
[~2017-12-18 17:27] MED LIST changes: +AZIT250T PO; +PRED10TA23 PO
[2017-12-18 18:12] LABS: BASOPHILS % (AUTO) 0.4 % (0-1); EOSINOPHILS # (AUTO) 0.1 X10'3 (0-0.9); EOSINOPHILS % (AUTO) 0.5 % (0-6); HEMATOCRIT 36.9 % (35.0-45.0); HEMOGLOBIN 12.6 g/dl (12.0-16.0); LYMPHOCYTES % (AUTO) 18.1 % (21-51); MEAN CORPUSCULAR HEMOGLOBIN 29.4 PG (27.0-31.0); MEAN CORPUSCULAR HGB CONC 34.2 % (33.0-36.5); MEAN PLATELET VOLUME 7.2 FL (7.4-10.4); MONOCYTES # (AUTO) 0.2 X10'3 (0-0.9); NEUTROPHILS # (AUTO) 8.5 X10'3 (1.8-7.7); PLATELET COUNT 543 X10'3 (140-440); RED CELL DISTRIBUTION WIDTH 12.2 % (11.5-14.5); WHITE BLOOD COUNT 10.8 X10'3 (4.5-11.0)
[2017-12-18 18:23] LABS: PARTIAL THROMBOPLASTIN TIME 28 SECONDS (22-32); PROTHROMBIN TIME 10.1 SECONDS (9.0-12.0)
[2017-12-18 18:37] LABS: ALANINE AMINOTRANSFERASE 13 U/L (12-78); ALBUMIN 3.9 G/DL (3.4-5.0); ALBUMIN/GLOBULIN RATIO 0.8 (1.1-1.5); ALKALINE PHOSPHATASE 129 IU/L (46-116); ANION GAP 17 (8-16); ASPARTATE AMINO TRANSFERASE 16 U/L (10-37); BILIRUBIN,TOTAL 0.4 MG/DL (0.1-1.0); BLOOD UREA NITROGEN 14 MG/DL (7-18); BUN/CREATININE RATIO 13.1 (6.6-38.0); CALCIUM 10.2 MG/DL (8.5-10.1); CHLORIDE 102 MMOL/L (99-107); CREATININE 1.07 MG/DL (0.40-0.90); GLUCOSE 147 MG/DL (70-104); POTASSIUM 3.4 MMOL/L (3.5-5.1); SODIUM 142 MMOL/L (135-145); TOTAL CARBON DIOXIDE 22.6 MMOL/L (24-32); TOTAL PROTEIN 8.6 G/DL (6.4-8.2); eGFR 53 ML/MIN
[2017-12-18] MEDS ORDERED: morphine 4 MG/ML inj SYRINge IV ONE (20:20)
[2017-12-18] MEDS ORDERED: ondansetron/PF 4mg/2ml inj IV ONE (20:20)
[2017-12-18 20:45] VITALS: BP 140/82
== END 2017-12-18 20:54 | disposition home or self-care (01) ==
LOC: ER 17:28
DX: G89.29 Other chronic pain (principal); M54.9 Dorsalgia, unspecified; I50.9 Heart failure, unspecified; E78.00 Pure hypercholesterolemia, unspecified; I11.0 Hypertensive heart disease with heart failure; I25.2 Old myocardial infarction; J44.9 Chronic obstructive pulmonary disease, unspecified; K21.9 Gastro-esophageal reflux disease without esophagitis; Z90.710 Acquired absence of both cervix and uterus; Z88.8 Allergy status to other drugs, medicaments and biological substances; Z79.82 Long term (current) use of aspirin; Z79.899 Other long term (current) drug therapy
CPT/HCPCS: 36415; 71045; 80053; 84484; 85025; 85610; 85730; 93005; 96374; 96375; 99285; J2270; J2405

== ENCOUNTER 2017-12-22 14:38 | Emergency (ER) | payer MEDICARE, MEDICAID ==
[~2017-12-22] VITALS: Ht 162.6 cm; Wt 41.2 kg
[2017-12-22 15:45] LABS: BASOPHILS # (AUTO) 0.1 X10'3 (0-0.2); BASOPHILS % (AUTO) 0.6 % (0-1); EOSINOPHILS % (AUTO) 0.3 % (0-6); HEMATOCRIT 37.7 % (35.0-45.0); HEMOGLOBIN 12.6 g/dl (12.0-16.0); LYMPHOCYTES # (AUTO) 1.8 X10'3 (1.1-4.8); LYMPHOCYTES % (AUTO) 11.9 % (21-51); MEAN CORPUSCULAR HEMOGLOBIN 29.3 PG (27.0-31.0); MEAN CORPUSCULAR HGB CONC 33.4 % (33.0-36.5); MEAN CORPUSCULAR VOLUME 87.8 FL (78-98); MEAN PLATELET VOLUME 7.1 FL (7.4-10.4); MONOCYTES # (AUTO) 0.3 X10'3 (0-0.9); MONOCYTES % (AUTO) 1.9 % (2-12); NEUTROPHILS # (AUTO) 12.5 X10'3 (1.8-7.7); NEUTROPHILS % (AUTO) 85.3 % (42-75); PLATELET COUNT 547 X10'3 (140-440); RED BLOOD COUNT 4.29 X10'6 (4.20-5.60); RED CELL DISTRIBUTION WIDTH 12.3 % (11.5-14.5); WHITE BLOOD COUNT 14.7 X10'3 (4.5-11.0)
[2017-12-22 15:57] LABS: INR 0.9 INR; PARTIAL THROMBOPLASTIN TIME 21 SECONDS (22-32); PROTHROMBIN TIME 9.7 SECONDS (9.0-12.0)
[2017-12-22 16:04] LABS: ALANINE AMINOTRANSFERASE 13 U/L (12-78); ALBUMIN 3.7 G/DL (3.4-5.0); ALBUMIN/GLOBULIN RATIO 0.9 (1.1-1.5); ALKALINE PHOSPHATASE 108 IU/L (46-116); ANION GAP 11 (8-16); ASPARTATE AMINO TRANSFERASE 12 U/L (10-37); BILIRUBIN,TOTAL 0.3 MG/DL (0.1-1.0); BLOOD UREA NITROGEN 19 MG/DL (7-18); BUN/CREATININE RATIO 20.2 (6.6-38.0); CALCIUM 10.2 MG/DL (8.5-10.1); CHLORIDE 105 MMOL/L (99-107); CREATININE 0.94 MG/DL (0.40-0.90); GLUCOSE 111 MG/DL (70-104); SODIUM 144 MMOL/L (135-145); TOTAL CARBON DIOXIDE 28.3 MMOL/L (24-32); TOTAL PROTEIN 7.7 G/DL (6.4-8.2); eGFR 62 ML/MIN
[2017-12-22] MEDS ORDERED: morphine 4 MG/ML inj SYRINge IM ONE (17:40)
[2017-12-22] MEDS ORDERED: ondansetron 4mg rapidly disintigrating tab PO ONE (17:40)
[2017-12-22] MEDS ORDERED: orphenadrine citrate 60mg/2ml inj. IM ONE (17:45)
[2017-12-22] MEDS ORDERED: potassium Cl 20 mEq SR tablet PO ONE (17:45)
[2017-12-22 18:41] VITALS: BP 157/101
== END 2017-12-22 19:11 | disposition home or self-care (01) ==
LOC: ER 14:39
DX: M54.5 Low back pain (principal); G89.29 Other chronic pain; R06.02 Shortness of breath; R07.89 Other chest pain; G43.909 Migraine, unspecified, not intractable, without status migrainosus; E78.00 Pure hypercholesterolemia, unspecified; I49.9 Cardiac arrhythmia, unspecified; I11.0 Hypertensive heart disease with heart failure; I50.9 Heart failure, unspecified; I25.2 Old myocardial infarction; J44.9 Chronic obstructive pulmonary disease, unspecified; K21.9 Gastro-esophageal reflux disease without esophagitis; F12.90 Cannabis use, unspecified, uncomplicated; F19.90 Other psychoactive substance use, unspecified, uncomplicated; Z86.718 Personal history of other venous thrombosis and embolism; Z87.442 Personal history of urinary calculi; Z90.710 Acquired absence of both cervix and uterus; Z98.890 Other specified postprocedural states; Z88.8 Allergy status to other drugs, medicaments and biological substances; Z79.82 Long term (current) use of aspirin; Z79.899 Other long term (current) drug therapy
CPT/HCPCS: 36415; 71045; 80053; 84484; 85025; 85610; 85730; 93005; 96372; 99285; J2270; J2360

== ENCOUNTER 2018-01-10 21:06 | Emergency (ER) | payer MEDICARE, MEDICAID ==
[~2018-01-10] VITALS: Ht 162.6 cm; Wt 40.9 kg
[~2018-01-10 21:06] MED LIST changes: -PRED10TA23 PO
[2018-01-10] MEDS ORDERED: ipratropium/albuterol 3ml nebule NEB ONE ×2 (21:40→23:00)
[2018-01-10 21:58] LABS: BASOPHILS % (AUTO) 0.3 % (0-1); EOSINOPHILS # (AUTO) 0.3 X10'3 (0-0.9); EOSINOPHILS % (AUTO) 2.7 % (0-6); HEMATOCRIT 32.3 % (35.0-45.0); HEMOGLOBIN 10.9 g/dl (12.0-16.0); LYMPHOCYTES % (AUTO) 17.6 % (21-51); MEAN CORPUSCULAR HEMOGLOBIN 28.9 PG (27.0-31.0); MEAN CORPUSCULAR HGB CONC 33.7 % (33.0-36.5); MEAN CORPUSCULAR VOLUME 85.7 FL (78-98); MEAN PLATELET VOLUME 7.4 FL (7.4-10.4); MONOCYTES # (AUTO) 0.8 X10'3 (0-0.9); MONOCYTES % (AUTO) 7.1 % (2-12); NEUTROPHILS # (AUTO) 8.2 X10'3 (1.8-7.7); NEUTROPHILS % (AUTO) 72.3 % (42-75); PLATELET COUNT 397 X10'3 (140-440); RED BLOOD COUNT 3.76 X10'6 (4.20-5.60); WHITE BLOOD COUNT 11.4 X10'3 (4.5-11.0)
[2018-01-10] MEDS ORDERED: ALPRAZolam 0.25mg tablet PO ONE (22:15)
[2018-01-10] MEDS ORDERED: HYDROcodone/acetaminophen 10/325mg tab PO ONE (22:15)
[2018-01-10 22:17] LABS: PARTIAL THROMBOPLASTIN TIME 29 SECONDS (22-32)
[2018-01-10 22:34] LABS: ALANINE AMINOTRANSFERASE 19 U/L (12-78); ALBUMIN 3.3 G/DL (3.4-5.0); ALBUMIN/GLOBULIN RATIO 0.8 (1.1-1.5); ALKALINE PHOSPHATASE 104 IU/L (46-116); ANION GAP 11 (8-16); ASPARTATE AMINO TRANSFERASE 27 U/L (10-37); BILIRUBIN,TOTAL 0.4 MG/DL (0.1-1.0); BLOOD UREA NITROGEN 17 MG/DL (7-18); BUN/CREATININE RATIO 18.3 (6.6-38.0); CALCIUM 8.9 MG/DL (8.5-10.1); CHLORIDE 102 MMOL/L (99-107); CREATININE 0.93 MG/DL (0.40-0.90); GLUCOSE 86 MG/DL (70-104); POTASSIUM 3.8 MMOL/L (3.5-5.1); SODIUM 138 MMOL/L (135-145); TOTAL CARBON DIOXIDE 25.4 MMOL/L (24-32); TOTAL PROTEIN 7.2 G/DL (6.4-8.2); eGFR 63 ML/MIN
[2018-01-10] MEDS ORDERED: methylPREDNISolone sod succ 125mg/2ml vial IV ONE (23:00)
[2018-01-10] MEDS ORDERED: predniSONE 20 mg tablet PO ONE (23:10)
[2018-01-11] MEDS ORDERED: DOXY100C43 PO (01:05)
[2018-01-11] MEDS ORDERED: LEG1EACH99 MC (01:05)
[2018-01-11] MEDS ORDERED: PRED50TA PO (01:05)
[2018-01-11] MEDS ORDERED: NEBU-208 (01:05)
[2018-01-11] MEDS ORDERED: doxycycline hyclate 100mg tablet.DR PO SCH (01:05)
[2018-01-11] MEDS ORDERED: ATR0.5NEB NEB (01:27)
[2018-01-11 01:56] VITALS: BP 137/81
== END 2018-01-11 02:05 | disposition home or self-care (01) ==
LOC: ER 21:06
DX: S80.02XA Contusion of left knee, initial encounter (principal); J18.9 Pneumonia, unspecified organism; G43.909 Migraine, unspecified, not intractable, without status migrainosus; I49.9 Cardiac arrhythmia, unspecified; I11.0 Hypertensive heart disease with heart failure; I50.9 Heart failure, unspecified; E78.00 Pure hypercholesterolemia, unspecified; I25.2 Old myocardial infarction; J44.9 Chronic obstructive pulmonary disease, unspecified; K21.9 Gastro-esophageal reflux disease without esophagitis; G89.29 Other chronic pain; Z87.442 Personal history of urinary calculi; Z86.718 Personal history of other venous thrombosis and embolism; Z90.710 Acquired absence of both cervix and uterus; Z88.8 Allergy status to other drugs, medicaments and biological substances; Z79.82 Long term (current) use of aspirin; Z79.899 Other long term (current) drug therapy; Z87.891 Personal history of nicotine dependence; W01.0XXA Fall on same level from slipping, tripping and stumbling without subsequent striking against object, initial encounter; Y93.89 Activity, other specified; Y92.89 Other specified places as the place of occurrence of the external cause; Y99.8 Other external cause status
CPT/HCPCS: 36415; 71045; 73564; 80053; 83880; 84484; 85025; 85610; 85730; 93005; 94640; 94760; 99285; J7512

== ENCOUNTER 2018-01-25 08:10 | Outpatient (CLI) | payer MEDICARE, MEDICAID ==
[~2018-01-25 08:10] MED LIST changes: +ATR0.5NEB NEB; +LEG1EACH99 MC; +NEBU-208; +PRED50TA PO
== END 2018-01-25 23:59 | disposition home or self-care (01) ==
LOC: LAB 08:10 → RT 23:59
PROVIDERS: ATTEND Internal Medicine Critical Care Medicine
DX: J44.9 Chronic obstructive pulmonary disease, unspecified (principal); I11.0 Hypertensive heart disease with heart failure; I50.9 Heart failure, unspecified
CPT/HCPCS: 94618

== ENCOUNTER 2018-02-18 16:10 | Emergency (ER) | payer MEDICARE, MEDICAID ==
[~2018-02-18] VITALS: Ht 565.3 cm; Wt 45.5 kg
[2018-02-18] MEDS ORDERED: ipratropium/albuterol 3ml nebule NEB ONE (16:20)
[2018-02-18] MEDS ORDERED: albuterol 2.5 MG/3 ML nebule NEB ONE (16:20)
[2018-02-18] MEDS ORDERED: methylPREDNISolone sod succ 125mg/2ml vial IV ONE (16:20)
[2018-02-18 16:52] LABS: BASOPHILS # (AUTO) 0.1 X10'3 (0-0.2); BASOPHILS % (AUTO) 0.4 % (0-1); EOSINOPHILS # (AUTO) 0.4 X10'3 (0-0.9); EOSINOPHILS % (AUTO) 2.6 % (0-6); HEMATOCRIT 40.1 % (35.0-45.0); HEMOGLOBIN 13.3 g/dl (12.0-16.0); LYMPHOCYTES # (AUTO) 3.3 X10'3 (1.1-4.8); LYMPHOCYTES % (AUTO) 19.2 % (21-51); MEAN CORPUSCULAR HEMOGLOBIN 28.4 PG (27.0-31.0); MEAN CORPUSCULAR HGB CONC 33.3 % (33.0-36.5); MEAN CORPUSCULAR VOLUME 85.4 FL (78-98); MONOCYTES # (AUTO) 1.3 X10'3 (0-0.9); MONOCYTES % (AUTO) 7.4 % (2-12); NEUTROPHILS # (AUTO) 12.1 X10'3 (1.8-7.7); NEUTROPHILS % (AUTO) 70.4 % (42-75); PLATELET COUNT 365 X10'3 (140-440); RED CELL DISTRIBUTION WIDTH 13.3 % (11.5-14.5); WHITE BLOOD COUNT 17.2 X10'3 (4.5-11.0)
[2018-02-18 17:05] LABS: ALANINE AMINOTRANSFERASE 17 U/L (12-78); ALBUMIN 3.9 G/DL (3.4-5.0); ALKALINE PHOSPHATASE 92 IU/L (46-116); ANION GAP 7 (8-16); ASPARTATE AMINO TRANSFERASE 20 U/L (10-37); BILIRUBIN,TOTAL 0.4 MG/DL (0.1-1.0); BLOOD UREA NITROGEN 22 MG/DL (7-18); BUN/CREATININE RATIO 24.4 (6.6-38.0); CALCIUM 9.8 MG/DL (8.5-10.1); CHLORIDE 100 MMOL/L (99-107); GLUCOSE 108 MG/DL (70-104); POTASSIUM 3.8 MMOL/L (3.5-5.1); SODIUM 136 MMOL/L (135-145); TOTAL PROTEIN 7.7 G/DL (6.4-8.2); eGFR 65 ML/MIN
[2018-02-18 17:07] LABS: PARTIAL THROMBOPLASTIN TIME 29 SECONDS (22-32); PROTHROMBIN TIME 10.2 SECONDS (9.0-12.0)
[2018-02-18] MEDS ORDERED: LEVO500T89 PO (18:13)
[2018-02-18] MEDS ORDERED: levoFLOXACIN 250mg tablet PO ONE (18:15)
[2018-02-18] MEDS ORDERED: HYDROcodone/acetaminophen 10/325mg tab PO ONE (18:15)
[2018-02-18 18:35] VITALS: BP 157/71
== END 2018-02-18 18:37 | disposition home or self-care (01) ==
LOC: ER 16:10
DX: J44.1 Chronic obstructive pulmonary disease with (acute) exacerbation (principal); R07.89 Other chest pain; G43.909 Migraine, unspecified, not intractable, without status migrainosus; I11.0 Hypertensive heart disease with heart failure; I50.9 Heart failure, unspecified; E78.00 Pure hypercholesterolemia, unspecified; I25.2 Old myocardial infarction; J44.9 Chronic obstructive pulmonary disease, unspecified; K21.9 Gastro-esophageal reflux disease without esophagitis; G89.29 Other chronic pain; F12.90 Cannabis use, unspecified, uncomplicated; Z90.710 Acquired absence of both cervix and uterus; Z88.8 Allergy status to other drugs, medicaments and biological substances; Z79.82 Long term (current) use of aspirin; Z79.899 Other long term (current) drug therapy
CPT/HCPCS: 36415; 71045; 80053; 83880; 84484; 85025; 85610; 85730; 93005; 94640; 94760; 96374; 99285; J2930

== ENCOUNTER 2018-04-27 18:22 | Emergency (ER) | payer MEDICARE, MEDICAID ==
[~2018-04-27] VITALS: Ht 162.6 cm; Wt 45.0 kg
[~2018-04-27 18:22] MED LIST changes: -AZIT250T PO; +DESL5TAB38; +HYDR-4353 PO; -HYDR-565 PO; -IPRA3AMP9 NEB; -LEG1EACH99 MC; +MIRT7.5T11 PO; +NITR0.4T51 SL; +PANT-47 PO; +PRED10TA23 PO; -PRED50TA PO; -ZIPR80CA2 PO
[2018-04-27] MEDS ORDERED: ipratropium/albuterol 3ml nebule NEB ONE (19:00)
[2018-04-27] MEDS ORDERED: normal saline 1000ML IV soln IVB ONE (19:00)
[2018-04-27] MEDS ORDERED: methylPREDNISolone sod succ 125mg/2ml vial IV ONE (19:00)
[2018-04-27 19:33] LABS: BASOPHILS # (AUTO) 0.1 X10'3 (0-0.2); BASOPHILS % (AUTO) 0.5 % (0-1); EOSINOPHILS # (AUTO) 0.9 X10'3 (0-0.9); EOSINOPHILS % (AUTO) 7.9 % (0-6); HEMATOCRIT 31.7 % (35.0-45.0); HEMOGLOBIN 10.2 g/dl (12.0-16.0); LYMPHOCYTES # (AUTO) 2.2 X10'3 (1.1-4.8); LYMPHOCYTES % (AUTO) 18.1 % (21-51); MEAN CORPUSCULAR HEMOGLOBIN 28.1 PG (27.0-31.0); MEAN CORPUSCULAR HGB CONC 32.3 % (33.0-36.5); MEAN PLATELET VOLUME 7.5 FL (7.4-10.4); MONOCYTES # (AUTO) 1.2 X10'3 (0-0.9); NEUTROPHILS # (AUTO) 7.6 X10'3 (1.8-7.7); NEUTROPHILS % (AUTO) 63.5 % (42-75); PLATELET COUNT 296 X10'3 (140-440); RED BLOOD COUNT 3.64 X10'6 (4.20-5.60); RED CELL DISTRIBUTION WIDTH 14.4 % (11.5-14.5)
[2018-04-27 19:36] LABS: ALANINE AMINOTRANSFERASE 19 U/L (12-78); ALBUMIN 2.9 G/DL (3.4-5.0); ALBUMIN/GLOBULIN RATIO 0.8 (1.1-1.5); ALKALINE PHOSPHATASE 80 IU/L (46-116); ANION GAP 6 (8-16); ASPARTATE AMINO TRANSFERASE 20 U/L (10-37); BILIRUBIN,TOTAL 0.5 MG/DL (0.1-1.0); BLOOD UREA NITROGEN 16 MG/DL (7-18); BUN/CREATININE RATIO 19.8 (6.6-38.0); CHLORIDE 106 MMOL/L (99-107); CREATININE 0.81 MG/DL (0.40-0.90); GLUCOSE 93 MG/DL (70-104); POTASSIUM 3.6 MMOL/L (3.5-5.1); SODIUM 142 MMOL/L (135-145); TOTAL CARBON DIOXIDE 30.1 MMOL/L (24-32); TOTAL PROTEIN 6.6 G/DL (6.4-8.2); eGFR 73 ML/MIN
[2018-04-27 19:40] LABS: PROTHROMBIN TIME 9.8 SECONDS (9.0-12.0)
[2018-04-27] MEDS ORDERED: acetaminophen 325mg tablet PO ONE (19:40)
[2018-04-27 19:41] LABS: INR 0.9 INR; PARTIAL THROMBOPLASTIN TIME 31 SECONDS (22-32)
[2018-04-27 20:10] VITALS: BP 121/69
[2018-04-27] MEDS ORDERED: HYDROcodone/acetaminophen 5mg/325mg tablet PO ONE (20:10)
[2018-04-27] MEDS ORDERED: PRED10TA PO (20:10)
== END 2018-04-27 20:47 | disposition home or self-care (01) ==
LOC: ER 18:23
DX: J44.1 Chronic obstructive pulmonary disease with (acute) exacerbation (principal); G43.909 Migraine, unspecified, not intractable, without status migrainosus; I11.0 Hypertensive heart disease with heart failure; I50.9 Heart failure, unspecified; E78.00 Pure hypercholesterolemia, unspecified; I25.2 Old myocardial infarction; K21.9 Gastro-esophageal reflux disease without esophagitis; G89.29 Other chronic pain; F12.90 Cannabis use, unspecified, uncomplicated; Z86.73 Personal history of transient ischemic attack (TIA), and cerebral infarction without residual deficits; Z87.442 Personal history of urinary calculi; Z90.710 Acquired absence of both cervix and uterus; Z88.8 Allergy status to other drugs, medicaments and biological substances; Z79.899 Other long term (current) drug therapy; Z79.82 Long term (current) use of aspirin; Z88.5 Allergy status to narcotic agent; Z99.81 Dependence on supplemental oxygen
CPT/HCPCS: 36415; 71045; 80053; 83880; 84484; 85025; 85610; 85730; 93005; 94640; 94760; 96361; 96374; 99285; J2930

== ENCOUNTER 2018-07-03 14:17 | Emergency (ER) | payer MEDICARE, MEDICAID ==
[~2018-07-03] VITALS: Ht 162.6 cm; Wt 44.1 kg
[~2018-07-03 14:17] MED LIST changes: +PRED10TA PO; -PRED10TA23 PO
[2018-07-03 15:27] LABS: BASOPHILS # (AUTO) 0.2 X10'3 (0-0.2); EOSINOPHILS # (AUTO) 0.7 X10'3 (0-0.9); EOSINOPHILS % (AUTO) 4.4 % (0-6); HEMATOCRIT 40.1 % (35.0-45.0); LYMPHOCYTES % (AUTO) 20.1 % (21-51); MEAN CORPUSCULAR HEMOGLOBIN 28.6 PG (27.0-31.0); MEAN CORPUSCULAR HGB CONC 32.4 % (33.0-36.5); MEAN CORPUSCULAR VOLUME 88.2 FL (78-98); MEAN PLATELET VOLUME 7.2 FL (7.4-10.4); MONOCYTES # (AUTO) 0.8 X10'3 (0-0.9); MONOCYTES % (AUTO) 5.4 % (2-12); NEUTROPHILS # (AUTO) 10.5 X10'3 (1.8-7.7); NEUTROPHILS % (AUTO) 69.1 % (42-75); PLATELET COUNT 515 X10'3 (140-440); RED BLOOD COUNT 4.55 X10'6 (4.20-5.60); RED CELL DISTRIBUTION WIDTH 14.5 % (11.5-14.5); WHITE BLOOD COUNT 15.2 X10'3 (4.5-11.0)
[2018-07-03 15:39] LABS: ALANINE AMINOTRANSFERASE 20 U/L (12-78); ALBUMIN 3.9 G/DL (3.4-5.0); ALBUMIN/GLOBULIN RATIO 1.1 (1.1-1.5); ALKALINE PHOSPHATASE 90 IU/L (46-116); ANION GAP 12 (8-16); ASPARTATE AMINO TRANSFERASE 15 U/L (10-37); BILIRUBIN,TOTAL 0.4 MG/DL (0.1-1.0); BLOOD UREA NITROGEN 16 MG/DL (7-18); BUN/CREATININE RATIO 15.8 (6.6-38.0); CALCIUM 8.9 MG/DL (8.5-10.1); CHLORIDE 101 MMOL/L (99-107); CREATININE 1.01 MG/DL (0.40-0.90); GLUCOSE 125 MG/DL (70-104); POTASSIUM 4.3 MMOL/L (3.5-5.1); SODIUM 138 MMOL/L (135-145); TOTAL CARBON DIOXIDE 25.1 MMOL/L (24-32); TOTAL PROTEIN 7.6 G/DL (6.4-8.2); eGFR 57 ML/MIN
[2018-07-03 17:14] LABS: TROPONIN I < 0.04 NG/ML (0.0-0.05)
[2018-07-03] MEDS ORDERED: ipratropium 0.5 MG/2.5ML nebule IH ONE (17:35)
[2018-07-03] MEDS ORDERED: benzonatate 100mg capsule PO ONE (17:35)
[2018-07-03] MEDS ORDERED: methylPREDNISolone sod succ 125mg/2ml vial IV ONE (17:35)
[2018-07-03] MEDS ORDERED: albuterol 2.5 MG/3 ML nebule CONTNEB PRN (17:35)
[2018-07-03] MEDS ORDERED: predniSONE 20 mg tablet PO ONE (18:05)
[2018-07-03 18:14] VITALS: BP 137/74
[2018-07-03] MEDS ORDERED: PRED20TA PO (18:51)
[2018-07-03] MEDS ORDERED: AZIT-63 PO (18:51)
[2018-07-03] MEDS ORDERED: BENZ-16 PO (18:51)
== END 2018-07-03 19:37 | disposition home or self-care (01) ==
LOC: ER 14:19
DX: J44.1 Chronic obstructive pulmonary disease with (acute) exacerbation (principal); I50.9 Heart failure, unspecified; E78.00 Pure hypercholesterolemia, unspecified; I11.0 Hypertensive heart disease with heart failure; I25.2 Old myocardial infarction; K21.9 Gastro-esophageal reflux disease without esophagitis; G89.29 Other chronic pain; F12.90 Cannabis use, unspecified, uncomplicated; F19.90 Other psychoactive substance use, unspecified, uncomplicated; Z86.69 Personal history of other diseases of the nervous system and sense organs; Z86.718 Personal history of other venous thrombosis and embolism; Z90.710 Acquired absence of both cervix and uterus; Z98.890 Other specified postprocedural states; Z87.891 Personal history of nicotine dependence
CPT/HCPCS: 36415; 71046; 80053; 84484; 85025; 87040; 93005; 94644; 94760; 99285; J7512

== ENCOUNTER 2018-07-24 16:17 | Emergency (ER) | payer MEDICARE, MEDICAID ==
[~2018-07-24] VITALS: Ht 162.6 cm; Wt 45.0 kg
[~2018-07-24 16:17] MED LIST changes: +AZIT-63 PO; +BENZ-16 PO; +PRED20TA PO
[2018-07-24] MEDS ORDERED: LORazepam 1 MG tablet PO ONE (16:30)
[2018-07-24] MEDS ORDERED: LORazepam 0.5 MG tablet PO ONE (16:35)
[2018-07-24 16:46] LABS: BASOPHILS # (AUTO) 0.1 X10'3 (0-0.2); BASOPHILS % (AUTO) 0.6 % (0-1); EOSINOPHILS # (AUTO) 0.7 X10'3 (0-0.9); EOSINOPHILS % (AUTO) 6.4 % (0-6); HEMATOCRIT 35.2 % (35.0-45.0); HEMOGLOBIN 11.5 g/dl (12.0-16.0); LYMPHOCYTES # (AUTO) 1.9 X10'3 (1.1-4.8); LYMPHOCYTES % (AUTO) 17.2 % (21-51); MEAN CORPUSCULAR HEMOGLOBIN 28.6 PG (27.0-31.0); MEAN CORPUSCULAR HGB CONC 32.7 % (33.0-36.5); MEAN CORPUSCULAR VOLUME 87.5 FL (78-98); MEAN PLATELET VOLUME 7.1 FL (7.4-10.4); MONOCYTES # (AUTO) 0.6 X10'3 (0-0.9); NEUTROPHILS % (AUTO) 70.8 % (42-75); PLATELET COUNT 453 X10'3 (140-440); RED BLOOD COUNT 4.03 X10'6 (4.20-5.60); RED CELL DISTRIBUTION WIDTH 14.5 % (11.5-14.5); WHITE BLOOD COUNT 11.3 X10'3 (4.5-11.0)
[2018-07-24 17:03] LABS: ALANINE AMINOTRANSFERASE 19 U/L (12-78); ALBUMIN 3.9 G/DL (3.4-5.0); ALBUMIN/GLOBULIN RATIO 0.9 (1.1-1.5); ALKALINE PHOSPHATASE 90 IU/L (46-116); ANION GAP 10 (8-16); ASPARTATE AMINO TRANSFERASE 21 U/L (10-37); BILIRUBIN,TOTAL 0.4 MG/DL (0.1-1.0); BLOOD UREA NITROGEN 15 MG/DL (7-18); CALCIUM 9.1 MG/DL (8.5-10.1); CHLORIDE 100 MMOL/L (99-107); CREATININE 0.94 MG/DL (0.40-0.90); GLUCOSE 80 MG/DL (70-104); POTASSIUM 3.8 MMOL/L (3.5-5.1); SODIUM 137 MMOL/L (135-145); TOTAL CARBON DIOXIDE 27.5 MMOL/L (24-32); TOTAL PROTEIN 8.2 G/DL (6.4-8.2); eGFR 62 ML/MIN
[2018-07-24 17:06] LABS: INR 0.9 INR; PARTIAL THROMBOPLASTIN TIME 29 SECONDS (22-32); PROTHROMBIN TIME 9.4 SECONDS (9.0-12.0)
[2018-07-24] MEDS ORDERED: proCHLORperazine 10 MG/2 ml inj IV ONE (17:40)
[2018-07-24] MEDS ORDERED: proCHLORperazine 10 MG/2 ml inj IM ONE (17:45)
[2018-07-24] MEDS ORDERED: PRED20TA PO (18:00)
[2018-07-24] MEDS ORDERED: LEVO500T2 PO (18:00)
[2018-07-24 18:31] VITALS: BP 123/86
== END 2018-07-24 18:32 | disposition home or self-care (01) ==
LOC: ER 16:18
DX: J44.1 Chronic obstructive pulmonary disease with (acute) exacerbation (principal); G43.909 Migraine, unspecified, not intractable, without status migrainosus; I11.0 Hypertensive heart disease with heart failure; I50.9 Heart failure, unspecified; E78.00 Pure hypercholesterolemia, unspecified; I25.2 Old myocardial infarction; K21.9 Gastro-esophageal reflux disease without esophagitis; G89.29 Other chronic pain; Z86.718 Personal history of other venous thrombosis and embolism; F12.90 Cannabis use, unspecified, uncomplicated; Z90.710 Acquired absence of both cervix and uterus; Z88.6 Allergy status to analgesic agent; Z88.8 Allergy status to other drugs, medicaments and biological substances; Z79.82 Long term (current) use of aspirin; Z79.899 Other long term (current) drug therapy
CPT/HCPCS: 36415; 71045; 80053; 83880; 84484; 85025; 85610; 85730; 93005; 96372; 99284; J0780

== ENCOUNTER 2018-09-23 12:59 | Emergency (ER) | payer MEDICARE, MEDICAID ==
[~2018-09-23] VITALS: Ht 162.6 cm; Wt 45.5 kg
[~2018-09-23 12:59] MED LIST changes: -AZIT-63 PO; -BENZ-16 PO; -PRED20TA PO
[2018-09-23 14:34] LABS: BASOPHILS # (AUTO) 0.1 X10'3 (0-0.2); BASOPHILS % (AUTO) 1.2 % (0-1); EOSINOPHILS % (AUTO) 0.1 % (0-6); HEMATOCRIT 39.3 % (35.0-45.0); HEMOGLOBIN 12.7 g/dl (12.0-16.0); LYMPHOCYTES # (AUTO) 1.6 X10'3 (1.1-4.8); LYMPHOCYTES % (AUTO) 14.3 % (21-51); MEAN CORPUSCULAR HEMOGLOBIN 28.6 PG (27.0-31.0); MEAN CORPUSCULAR HGB CONC 32.3 g/dL (33.0-36.5); MEAN CORPUSCULAR VOLUME 88.4 FL (78-98); MEAN PLATELET VOLUME 7.2 FL (7.4-10.4); MONOCYTES # (AUTO) 0.2 X10'3 (0-0.9); MONOCYTES % (AUTO) 1.4 % (2-12); NEUTROPHILS # (AUTO) 9.5 X10'3 (1.8-7.7); PLATELET COUNT 436 X10'3 (140-440); RED BLOOD COUNT 4.45 X10'6 (4.20-5.60); RED CELL DISTRIBUTION WIDTH 13.1 % (11.5-14.5); WHITE BLOOD COUNT 11.4 X10'3 (4.5-11.0)
[2018-09-23 14:38] LABS: ALANINE AMINOTRANSFERASE 15 U/L (12-78); ALBUMIN 4.1 G/DL (3.4-5.0); ALKALINE PHOSPHATASE 102 IU/L (46-116); ANION GAP 10 (8-16); ASPARTATE AMINO TRANSFERASE 22 U/L (10-37); BILIRUBIN,TOTAL 0.5 MG/DL (0.1-1.0); BLOOD UREA NITROGEN 16 MG/DL (7-18); CHLORIDE 99 MMOL/L (99-107); GLUCOSE 122 MG/DL (70-104); POTASSIUM 4.4 MMOL/L (3.5-5.1); SODIUM 138 MMOL/L (135-145); TOTAL CARBON DIOXIDE 28.6 MMOL/L (24-32); TOTAL PROTEIN 8.2 G/DL (6.4-8.2); eGFR 74 ML/MIN
[2018-09-23 15:23] VITALS: BP 147/103
[2018-09-23] MEDS ORDERED: methylPREDNISolone sod succ 125mg/2ml vial IM ONE (15:30)
[2018-09-23] MEDS ORDERED: ipratropium/albuterol 3ml nebule NEB ONE (15:30)
[2018-09-23] MEDS ORDERED: AZIT250T83 PO (15:32)
== END 2018-09-23 16:16 | disposition home or self-care (01) ==
LOC: ER 13:00
DX: J44.1 Chronic obstructive pulmonary disease with (acute) exacerbation (principal); I11.0 Hypertensive heart disease with heart failure; I50.9 Heart failure, unspecified; G43.909 Migraine, unspecified, not intractable, without status migrainosus; I25.2 Old myocardial infarction; J44.9 Chronic obstructive pulmonary disease, unspecified; K21.9 Gastro-esophageal reflux disease without esophagitis; G89.29 Other chronic pain; M54.9 Dorsalgia, unspecified; Z86.718 Personal history of other venous thrombosis and embolism; Z90.710 Acquired absence of both cervix and uterus; Z90.722 Acquired absence of ovaries, bilateral; F12.90 Cannabis use, unspecified, uncomplicated; Z88.6 Allergy status to analgesic agent; Z88.8 Allergy status to other drugs, medicaments and biological substances; Z79.82 Long term (current) use of aspirin
CPT/HCPCS: 36415; 71046; 80053; 83605; 85025; 87040; 93005; 94640; 94760; 96372; 99284; J2930

== ENCOUNTER 2018-10-31 15:54 | Inpatient (IN) | payer MEDICARE, MEDICAID | END 2018-11-24 20:50 | disposition E | LOC: ER 15:54 → ICU 2S 11-06 11:35 | PROC: 0DTG0ZZ Resection of Left Large Intestine, Open Approach (ICD-10-PCS; principal; 2018-11-05 17:06) | PROC: 0D1M0Z4 Bypass Descending Colon to Cutaneous, Open Approach (ICD-10-PCS; 2018-11-05 17:06) | PROC: 0DBN8ZX Excision of Sigmoid Colon, Via Natural or Artificial Opening Endoscopic, Diagnostic (ICD-10-PCS; 2018-11-05 17:06) | DX: A41.9 Sepsis, unspecified organism (principal); J18.9 Pneumonia, unspecified organism; K56.609 Unspecified intestinal obstruction, unspecified as to partial versus complete obstruction; K55.9 Vascular disorder of intestine, unspecified; E10.51 Type 1 diabetes mellitus with diabetic peripheral angiopathy without gangrene ==